=== PATIENT | male | born 1980 | race Caucasian/White ===

== ENCOUNTER 2016-09-28 14:50 | Emergency (ER) | payer OTHER | END 2016-09-28 16:48 | disposition left against medical advice (07) | LOC: UCCORT 14:50 | DX: M79.673 Pain in unspecified foot (principal); Z53.21 Procedure and treatment not carried out due to patient leaving prior to being seen by health care provider ==

== ENCOUNTER 2016-09-28 16:58 | Emergency (ER) | payer OTHER ==
[2016-09-28 18:04] VITALS: BP 138/76
[2016-09-28] MEDS ORDERED: Ibuprofen TAB* 600 MG PO ONE (18:12)
--- NOTE | 2016-09-28 18:12 | UC ---
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 - History of Current Complaint Chief Complaint: UCLowerExtremity Stated Complaint: RIGHT FOOT INJURY Time Seen by Provider: 09/28/16 18:04 Hx Obtained From: Patient Onset/Duration: Gradual Onset, Lasting Hours Severity Initially: Moderate Severity Currently: Moderate Pain Intensity: 6 Pain Scale Used: 0-10 Numeric Aggravating Factor(s): Standing, Ambulation Alleviating Factor(s): Rest Able to Bear Weight: Yes - Allergies/Home Medications Allergies/Adverse Reactions: Allergies Allergy/AdvReac Type Severity Reaction Status Date / Time No Known Allergies Allergy Verified 01/29/16 18:27 PMH/Surg Hx/FS Hx/Imm Hx Previously Healthy: Yes Cardiovascular History Of: Reports: Hypertension - Surgical History Surgical History: Yes Surgery Procedure, Year, and Place: right inguinal hernia repair as child, vasectomy 2007 - Family History Known Family History: Positive: Hypertension, Other - gout/dyslipidemia - Social History Alcohol Use: Rare Substance Use Type: None Smoking Status (MU): Never Smoked Tobacco - Immunization History Most Recent Influenza Vaccination: Not the Season Review of Systems Constitutional: Negative Skin: Negative Eyes: Negative ENT: Negative Respiratory: Negative Cardiovascular: Negative Gastrointestinal: Negative Genitourinary: Negative Motor: Negative Neurovascular: Negative Musculoskeletal: Arthralgia Neurological: Negative Psychological: Negative All Other Systems Reviewed And Are Negative: Yes Physical Exam Triage Information Reviewed: Yes Appearance: Well-Appearing, No Pain Distress, Well-Nourished Vital Signs: Initial Vital Signs Temp 97.9 F 09/28/16 17:57 Pulse 74 09/28/16 17:57 Resp 16 09/28/16 17:57 BP 138/76 09/28/16 17:57 Pulse Ox 98 09/28/16 17:57 Vital Signs Reviewed: Yes Eyes: Positive: Conjunctiva Clear ENT: Positive: Hearing grossly normal. Negative: Nasal congestion, Nasal drainage, Trismus, Muffled/hoarse voice Neck: Positive: Supple, Nontender Respiratory: Positive: Lungs clear, Normal breath sounds, No respiratory distress, No accessory muscle use Cardiovascular: Positive: RRR, No Murmur Musculoskeletal: Positive: ROM Intact, Edema @, Other: - see image Neurological: Positive: Alert Psychological Exam: Normal Skin Exam: Normal Lower Extremity Course/Dx - Differential Dx/Diagnosis Provider Diagnoses: ankle sprain vs tendonitis Discharge - Discharge Plan Condition: Stable Disposition: HOME Prescriptions: Ibuprofen TAB* [Motrin TAB*] 600 mg PO QID PRN #40 tab PRN Reason: Pain Patient Education Materials: Ankle Sprain (ED) Forms: *Work Release Referrals: Kay Garcia MD [Medical Doctor] - If Needed Brinda Costa NP [Primary Care Provider] - Additional Instructions: rest elevate ice maryanne splint motrin Images Feet (Multiple View): 1 - tender/sl swelling, antalgic pain
--- NOTE | 2016-09-28 18:44 | RAD ---
INDICATION: Right ankle injury. TECHNIQUE: 3 views of the right ankle were obtained. FINDINGS: There is mild soft tissue swelling is noted along the anterolateral aspect of the ankle. No fracture is seen. Joint spaces appear maintained. IMPRESSION: SOFT TISSUE SWELLING, NO FRACTURE IS SEEN.
== END 2016-09-28 19:13 | disposition home or self-care (01) ==
LOC: UCCORT 16:58
DX: S99.911A Unspecified injury of right ankle, initial encounter (principal); Y93.67 Activity, basketball
CPT/HCPCS: 99213; A9270-GY; G0463